=== PATIENT | male | born 1950 | race Caucasian/White ===

== ENCOUNTER 2019-10-11 19:49 | Emergency (ER) | payer OTHER, SELFPAY ==
[2019-10-11] VITALS (13 sets, daily range): BP systolic 126–141; BP diastolic 49–74; PULSE 80–82; RESP 15–18; TEMP 36.2; O2SAT 92–98; BMI 36.6
--- NOTE | 2019-10-11 20:06 | XR_ITS ---
WS: [id number] XR chest 1V portable [id number] REASON FOR EXAM: fall FINDINGS: Scoliotic curve convex to the right. Comparisons were made to September 22, 2017 there is fibrosis again seen in the lower lung [place]. No pneumonia, pleural effusion, pulmonary edema. The rib cage appears to be essentially normal. XR/XR chest 1V portable [id number] IMPRESSION: Scoliotic curve convex to the right Mild fibrosis lower lungs.
--- NOTE | 2019-10-11 20:13 | CTR_ITS ---
PROCEDURE INFORMATION: Exam: CT Head Without Contrast Exam date and time: 10/11/2019 9:08 PM Age: 69 years old Clinical indication: Injury or trauma; Fall TECHNIQUE: Imaging protocol: Computed tomography of the head without contrast. Radiation optimization: All CT scans at this facility use at least one of these dose optimization techniques: automated exposure control; mA and/or kV adjustment per patient size (includes targeted exams where dose is matched to clinical indication); or iterative reconstruction. COMPARISON: CT head wo con* [id number] 2017-09-22 13:50 RADIATION DOSE METRICS: Total DLP: 988.9 mGy-cm FINDINGS: Brain: Normal. No hemorrhage. Unremarkable white matter. No mass effect. Ventricles: Normal. No ventriculomegaly. Bones/joints: Unremarkable. No acute fracture. Sinuses: Visualized sinuses are unremarkable. No fluid levels. Mastoid air cells: Visualized mastoid air cells are well aerated. Soft tissues: Unremarkable. CT/CT head wo con* [id number] IMPRESSION: No acute intracranial abnormality. Radiation Dose CTDIVOL = (mGy): DLP = 988.9 (mGy-cm)
--- NOTE | 2019-10-11 20:13 | CTR_ITS ---
PROCEDURE INFORMATION: Exam: CT Chest With Contrast Exam date and time: 10/11/2019 9:08 PM Age: 69 years old Clinical indication: Pain and injury or trauma; Fall; Initial encounter; Blunt; Luq; Abdominal pain; Left-sided chest pain; Prior surgery; Surgery type: Bowel, bypass? ? TECHNIQUE: Imaging protocol: Computed tomography of the chest with intravenous contrast. Radiation optimization: All CT scans at this facility use at least one of these dose optimization techniques: automated exposure control; mA and/or kV adjustment per patient size (includes targeted exams where dose is matched to clinical indication); or iterative reconstruction. Contrast material: OMNI 300; Contrast volume: 95 ml; Contrast route: IV; COMPARISON: CT Abdomen/Pelvis Renal [id number] 2019-01-07 19:18 RADIATION DOSE METRICS: Total DLP: 2667.27 mGy-cm FINDINGS: Lungs: Noncalcified right lower lobe superior segment 9 mm pulmonary nodule. Mild patchy pulmonary mosaic attenuation is unchanged. Superior left lower lobe 8 mm pulmonary nodule. Pleural space: Unremarkable. No pneumothorax. No pleural effusion. Heart: Unremarkable. No cardiomegaly. No pericardial effusion. Aorta: Unremarkable. No aortic aneurysm. Lymph nodes: Unremarkable. No enlarged lymph nodes. Bones/joints: Mild thoracic spondylosis. Soft tissues: Unremarkable. IMPRESSION: 1. No acute abnormality. 2. Noncalcified right lower lobe superior segment 9 mm pulmonary nodule. Superior left lower lobe 8 mm pulmonary nodule. Recommend follow-up. COMMENTS: As per Fleischner Society guidelines for follow-up and management of pulmonary nodules: Recommend initial follow-up chest CT at 3, 9 and 24 months. Consider contrast enhanced chest CT, PET scan and/or biopsy as clinically warranted. PROCEDURE INFORMATION: Exam: CT Abdomen And Pelvis With Contrast Exam date and time: 10/11/2019 9:08 PM Age: 69 years old Clinical indication: Pain and injury or trauma; Fall; Initial encounter; Blunt; Luq; Abdominal pain; Left-sided chest pain; Prior surgery; Surgery type: Bowel, bypass? ? TECHNIQUE: Imaging protocol: Computed tomography of the abdomen and pelvis with intravenous contrast. Radiation optimization: All CT scans at this facility use at least one of these dose optimization techniques: automated exposure control; mA and/or kV adjustment per patient size (includes targeted exams where dose is matched to clinical indication); or iterative reconstruction. Contrast material: OMNI 300; Contrast volume: 95 ml; Contrast route: IV; COMPARISON: CT Abdomen/Pelvis Renal [id number] 2019-01-07 19:18 RADIATION DOSE METRICS: Total DLP: 2667.27 mGy-cm FINDINGS: Liver: Unchanged hypoattenuating 3.6 cm liver lesion causing mild bulging of the liver contour. Gallbladder and bile ducts: Cholelithiasis. Pancreas: Normal. No ductal dilation. Spleen: Normal. No splenomegaly. Adrenals: Normal. No mass. Kidneys and ureters: Small, less than 5 mm, renal hypodensity. Highly likely to be benign and does not require follow-up imaging or biopsy per ACR. Left inferior renal pole 4.8 cm simple cyst. Stomach and bowel: Proximal colectomy with ileocolic anastomosis. Couple colonic diverticula. Nonspecific 4 cm distension of the transverse segment of the duodenum. Appendix: No evidence of appendicitis. Intraperitoneal space: Unremarkable. No free air. No significant fluid collection. Vasculature: Unremarkable. No abdominal aortic aneurysm. Lymph nodes: Unremarkable. No enlarged lymph nodes. Bladder: Unremarkable as visualized. Reproductive: Mild prostate gland enlargement. Bones/joints: Unremarkable. No acute fracture. Soft tissues: Abdominal laparotomy scarring. CT/CT chest abd pel w con* IMPRESSION: 1. No acute abnormality. 2. Unchanged hypoattenuating 3.6 cm liver lesion causing mild bulging of the liver contour. 3. Cholelithiasis. 4. Nonspecific 4 cm distension of the transverse segment of the duodenum. COMMENTS: Consistent with the [employer]'s Incidental Findings Committee white paper (J Am Joellen Radiol 2018): Any incidental cystic renal lesion classified in this report as too small to characterize or simple appearing is likely a benign cyst. No follow-up imaging is recommended for these lesions per consensus recommendations based on imaging criteria. Radiation Dose CTDIVOL = (mGy): DLP = 2667.27~2667.27 (mGy-cm)
--- NOTE | 2019-10-11 20:28 | ED_ITS ---
HPI - General Adult General: Chief complaint: General Medical Stated complaint: left side pain Time Seen by Provider: 10/11/19 20:08 History of Present Illness: HPI narrative: Mr. Bean is a very nice 69-year-old male who comes in complaining of primarily left lower chest left upper quadrant pain after stepping into a hole and falling yesterday. He hit his head but had no loss of consciousness. He denies any neck pain, upper extremity pain, back pain or lower extremity injury/pain. Complains of pain to his left lower anterior ribs and his left upper quadrant of his abdomen. The patient states because the pain is persisted and has somewhat become worse he comes in to be evaluated. He denies any shortness of breath but his pain is made worse by deep breathing. When asked the patient does admit to being on Coumadin for history of atrial fibrillation. Associated symptoms: Reports chest pain; Deny confusion, diaphoresis, dyspnea, headache(s), malaise, nausea, rash, palpitations, syncope or vomiting Review of Systems General: Reports: other (negative unless marked) Const: Denies: fever, chills, body aches, fatigue, malaise or diaphoresis Eyes: Denies: change in vision or blurry vision ENMT: Denies: throat pain, painful swallowing, hoarseness, ear pain, ear discharge, Change in hearing or nasal discharge Card: Reports: chest pain; Denies: palpitations, irregular heart rhythm, syncope, pre-syncope, shortness of breath on exertion or shortness of breath when lying down Resp: Denies: shortness of breath, productive cough, non-productive cough, wheezing, coughing up blood or chest congestion GI: Reports: abdominal pain; Denies: nausea, vomiting, vomiting blood, coffee grounds in vomit, diarrhea, constipation, cramping, blood in stool or black tarry stool : Denies: flank pain, difficulty urinating, painful urination, urinary frequency, urinary urgency, decreased urine ouput, urinary incontinence or blood in urine Musc: Denies: neck pain, back pain, extremity pain, extremity swelling, joint pain, joint swelling, joint warmth or joint stiffness Skin/Breast: Denies: rash, skin tenderness or yellow skin Neuro: Denies: headache, numbness in extremities, weakness in extremities, changes in sensation, lack of coordination, difficulty walking, dizziness, vertigo or confusion Endo: Denies: excessive thirst, tired all the time, cold intolerance, excessive sweating, flushing or hot flashes Farhan/Lymph: Denies: easy bruising, easy bleeding, petechiae or enlarged lymph nodes All/Imm: Denies: hives, throat swelling, tongue swelling, facial swelling or acute wheezing PFSH ED PFSH: Medical History Atrial fibrillation Chronic pain Congestive heart failure COPD (chronic obstructive pulmonary disease) Coronary artery disease DM type 2 (diabetes mellitus, type 2) Hypertension Neuropathy Obstructive sleep apnea Surgical History H/O abdominal surgery Social History Smoking and tobacco status: current every day smoker Physical Exam Const: COMMON NORMALS: no apparent distress, oriented x3, no limitations, healthy appearing and well nourished EXAM LIMITATIONS: no altered mental status GENERAL APPEARANCE: cooperative, well kempt and well developed ORIENTATION/CONSCIOUSNESS: Yes awake HENMT: COMMON NORMALS: normocephalic, head/scalp atraumatic, hearing grossly normal bilaterally, external ears normal, EAC's normal, external nose normal and moist oral mucous membranes HEAD & SCALP: normal to inspection, normocephalic and atraumatic FACE & SINUS: normal facial exam and face symmetric NOSE: external nose normal and nares normal EXTERNAL EAR: Yes external ears normal EXTERNAL AUDITORY CANAL: EAC's normal MOUTH: oral and palatal mucosa normal and tongue normal Eye: COMMON NORMALS: PERRL, EOMs intact bilaterally, conjunctivae normal and no scleral icterus GENERAL EYE: normal appearance of both eyes and normal light reflex CONJUNCTIVA: Yes conjunctivae normal SCLERA: sclerae normal CORNEA: Yes corneas normal PUPIL: Yes PERRL DIRECT OPHTHALMOSCOPY: Yes normal light reflex Neck/C-Spine: COMMON NORMALS: full ROM, no lymphadenopathy, supple, no meningeal signs and no JVD GENERAL: Yes normal visual inspection and Yes trachea midline CERVICAL SPINE: Yes cervical ROM normal Chest: CHEST: Yes localized rib tenderness with anteroposterior compression, No sternal flail, Yes tenderness rib (Left lower anterior), No ecchymosis and Yes scars (Midline laparotomy scar) Resp: COMMON NORMALS: normal respiratory effort, no retractions, no use of accessory muscles and clear to auscultation bilaterally EFFORT & INSPECTION: Yes able to speak in complete sentences AUSCULTATION: clear to auscultation bilaterally Cardio: COMMON NORMALS: no JVD, regular rate, regular rhythm, S1 normal heart sound, S2 normal heart sound, no gallops, no clicks, no murmurs and no rub JUGULAR VENOUS DISTENTION: no JVD RATE: regular rate RHYTHM: regular rhythm HEART SOUNDS: S1 normal and S2 normal GI: COMMON NORMALS: soft to palpation, no hepatosplenomegaly and no masses PALPATION: Yes soft, Yes tender Details: LUQ and Yes no hepatosplenomegaly : COMMON NORMALS: Yes no CVA tenderness BLADDER/KIDNEY EXAM: Yes no CVA tenderness Back/Pelvis: COMMON NORMALS: no CVA tenderness, thoracic and lumbar spine normal to inspection, no thoracic nor lumbar tenderness and thoraco-lumbar ROM normal Extremity: COMMON NORMALS: normal to inspection, full ROM, normal capillary refill, no joint enlargement, no clubbing, cyanosis or edema and no calf tenderness Neuro: COMMON NORMALS: oriented x3, CN's II-XII intact bilaterally, moves all extremities, no focal motor deficits and no sensory deficits noted MENINGEAL SIGNS: Yes no meningeal signs Psych: COMMON NORMALS: mental status grossly normal, thought process normal, cooperative, affect normal, speech normal and activity/motor behavior normal APPEARANCE: Yes well kempt SPEECH: Yes normal speech THOUGHT PROCESS: normal thought process Skin: COMMON NORMALS: no rashes or lesions noted, skin turgor normal, no ja undice, no petechiae and no mottling GENERAL SKIN EXAM: no rashes or lesions noted and turgor normal Course Vital Signs: Vital signs: Vital Signs Temperature 97.1 F L 10/11/19 20:01 Pulse Rate 82 10/11/19 20:01 Respiratory Rate 15 10/11/19 20:01 Blood Pressure 141/74 10/11/19 20:01 Pulse Oximetry 98 10/11/19 20:01 MDM - General Adult MDM Narrative: Medical decision making narrative: Mr. Bean is a nice 69-year-old male who comes in complaining primarily of rib pain after he fell. Primary concern is the patient is on Coumadin and they are well known to have significant bleeding internally with trauma. CT scan shows no evidence of bleeding in the brain and his chest and abdomen CT showed no evidence of internal injuries. Clinically I do think he has a rib fracture so I will medicate him for this. He understands his medicine will make him groggy and sleepy and he will try to take it slow and accommodate for this at home. He has taken hydrocodone before and he believes he does well with it. He agrees to follow-up with his doctor concerning the pulmonary nodules in the nonspecific findings of his duodenum. Lab Data: Attestation: I reviewed the patient's lab results. Labs: Lab Results 10/11/19 10/11/19 10/11/19 Range/Units 20:23 20:23 20:23 WBC 12.3 H (4.0-10.0) 10^3/ uL RBC 5.01 (4.1-5.3) 10^6/u L Hgb 16.0 (11.7-16.6) g/dL Hct 47.5 (42.0-52.0) % MCV 94.8 H (80-94) fL MCH 31.9 (28.0-34.0) pg MCHC 33.7 (30.0-36.0) g/dL RDW 13.1 (12.1-15.1) % Plt Count 272 (130-400) 10^3/c mm MPV 11.2 H (7.4-10.4) fL Neut % (Auto) 53.9 % Lymph % (Auto) 35.3 % [place] % (Auto) 8.2 % Eos % (Auto) 1.8 % Baso % (Auto) 0.6 % Neut # (Auto) 6.6 (1.8-7.7) 10^3/u L Lymph # (Auto) 4.3 (0.8-4.8) 10^3/u L [place] # (Auto) 1.0 H (0.2-0.9) 10^3/u L Eos # (Auto) 0.2 (0.0-0.8) 10^3/u L Baso # (Auto) 0.1 (0.0-0.1) 10^3/u L Nucleated RBC % (a uto) 0 % Nucleated RBCs # 0.0 /100WBC PT 29.00 H (10.5-13.3) SECO NDS INR 2.62 H (0.8-1.2) Sodium 134 L (136-145) mmol/L Potassium 4.1 (3.5-5.1) mmol/L Chloride 99 (98-107) mmol/L Carbon Dioxide 24 (22-29) mmol/L Anion Gap 15.1 (5-19) BUN 13 (8-23) mg/dL Creatinine 0.8 (0.7-1.2) mg/dL GFR Calculation 96.4 (90-130) mL/min Glucose 200 H (65-115) mg/dL Calculated Osmolal ity 280 L (285-295) mOsm/k g Calcium 9.4 (8.5-10.5) mg/dL Total Bilirubin 0.4 (0.15-1.2) mg/dL AST 13 (0-40) U/L ALT 10 (0-41) U/L Alkaline Phosphata se 83 (40-130) IU/L Total Protein 7.3 (6.6-8.7) g/dL Albumin 3.9 (3.5-5.2) g/dL Globulin 3.4 (1.3-4.6) g/dL Imaging Data^: CXR: My impression: No obvious pneumothorax on the portable upright film. Questionable pulmonary contusion present. CT Head: Radiologist's impression: [address] [address] [address] Scan Report Signed Patient: Marlon Fairbanks Unit #: [id number] : 1950 Age/Sex: 69 / M ADM Date: 10/11/19 Loc: ER Room/Bed: Attending Dr: Ordering Provider/Ordering MD: Sofy Flores DO Date of Service: 10/11/19 Procedure(s): CT head wo con* [id number] Accession Number(s): [id number] Report Number: [id number] PROCEDURE INFORMATION: Exam: CT Head Without Contrast Exam date and time: 10/11/2019 9:08 PM Age: 69 years old Clinical indication: Injury or trauma; Fall TECHNIQUE: Imaging protocol: Computed tomography of the head without contrast. Radiation optimization: All CT scans at this facility use at least one of these dose optimization techniques: automated exposure control; mA and/or kV adjustment per patient size (includes targeted exams where dose is matched to clinical indication); or iterative reconstruction. COMPARISON: CT head wo con* [id number] 2017-09-22 13:50 RADIATION DOSE METRICS: Total DLP: 988.9 mGy-cm FINDINGS: Brain: Normal. No hemorrhage. Unremarkable white matter. No mass effect. Ventricles: Normal. No ventriculomegaly. Bones/joints: Unremarkable. No acute fracture. Sinuses: Visualized sinuses are unremarkable. No fluid levels. Mastoid air cells: Visualized mastoid air cells are well aerated. Soft tissues: Unremarkable. CT/CT head wo con* [id number] IMPRESSION: No acute intracranial abnormality. Radiation Dose CTDIVOL = (mGy): DLP = 988.9 (mGy-cm) Dictated By: Marlon Solis MD Signed By: Marlon Solis MD Signed Date/Time: 10/11/192141 DD/ 39 CT Chest/Abdomen/Pelvis: Radiologist's impression: [place] [address] CT Scan Report Signed Patient: Marlon Fairbanks Unit #: [id number] : 1950 354 Age/Sex: 69 / M ADM Date: 10/11/19 Loc: ER Room/Bed: Attending Dr: Ordering Provider/Ordering MD: Sofy Flores DO Date of Service: 10/11/19 Procedure(s): CT chest abd pel w con* Accession Number(s): [id number] Report Number: [id number] PROCEDURE INFORMATION: Exam: CT Chest With Contrast Exam date and time: 10/11/2019 9:08 PM Age: 69 years old Clinical indication: Pain and injury or trauma; Fall; Initial encounter; Blunt; Luq; Abdominal pain; Left-sided chest pain; Prior surgery; Surgery type: Bowel, bypass? ? TECHNIQUE: Imaging protocol: Computed tomography of the chest with intravenous contrast. Radiation optimization: All CT scans at this facility use at least one of these dose optimization techniques: automated exposure control; mA and/or kV adjustment per patient size (includes targeted exams where dose is matched to clinical indication); or iterative reconstruction. Contrast material: OMNI 300; Contrast volume: 95 ml; Contrast route: IV; COMPARISON: CT Abdomen/Pelvis Renal [id number] 2019-01-07 19:18 RADIATION DOSE METRICS: Total DLP: 2667.27 mGy-cm FINDINGS: Lungs: Noncalcified right lower lobe superior segment 9 mm pulmonary nodule. Mild patchy pulmonary mosaic attenuation is unchanged. Superior left lower lobe 8 mm pulmonary nodule. Pleural space: Unremarkable. No pneumothorax. No pleural effusion. Heart: Unremarkable. No cardiomegaly. No pericardial effusion. Aorta: Unremarkable. No aortic aneurysm. Lymph nodes: Unremarkable. No enlarged lymph nodes. Bones/joints: Mild thoracic spondylosis. Soft tissues: Unremarkable. IMPRESSION: 1. No acute abnormality. 2. Noncalcified right lower lobe superior segment 9 mm pulmonary nodule. Superior left lower lobe 8 mm pulmonary nodule. Recommend follow-up. COMMENTS: As per Fleischner Society guidelines for follow-up and management of pulmonary nodules: Recommend initial follow-up chest CT at 3, 9 and 24 months. Consider contrast enhanced chest CT, PET scan and/or biopsy as clinically warranted. PROCEDURE INFORMATION: Exam: CT Abdomen And Pelvis With Contrast Exam date and time: 10/11/2019 9:08 PM Age: 69 years old Clinical indication: Pain and injury or trauma; Fall; Initial encounter; Blunt; Luq; Abdominal pain; Left-sided chest pain; Prior surgery; Surgery type: Bowel, bypass? ? TECHNIQUE: Imaging protocol: Computed tomography of the abdomen and pelvis with intravenous contrast. Radiation optimization: All CT scans at this facility use at least one of these dose optimization techniques: automated exposure control; mA and/or kV adjustment per patient size (includes targeted exams where dose is matched to clinical indication); or iterative reconstruction. Contrast material: OMNI 300; Contrast volume: 95 ml; Contrast route: IV; COMPARISON: CT Abdomen/Pelvis Renal [id number] 2019-01-07 19:18 RADIATION DOSE METRICS: Total DLP: 2667.27 mGy-cm FINDINGS: Liver: Unchanged hypoattenuating 3.6 cm liver lesion causing mild bulging of the liver contour. Gallbladder and bile ducts: Cholelithiasis. Pancreas: Normal. No ductal dilation. Spleen: Normal. No splenomegaly. Adrenals: Normal. No mass. Kidneys and ureters: Small, less than 5 mm, renal hypodensity. Highly likely to be benign and does not require follow-up imaging or biopsy per ACR. Left inferior renal pole 4.8 cm simple cyst. Stomach and bowel: Proximal colectomy with ileocolic anastomosis. Couple colonic diverticula. Nonspecific 4 cm distension of the transverse segment of the duodenum. Appendix: No evidence of appendicitis. Intraperitoneal space: Unremarkable. No free air. No significant fluid collection. Vasculature: Unremarkable. No abdominal aortic aneurysm. Lymph nodes: Unremarkable. No enlarged lymph nodes. Bladder: Unremarkable as visualized. Reproductive: Mild prostate gland enlargement. Bones/joints: Unremarkable. No acute fracture. Soft tissues: Abdominal laparotomy scarring. CT/CT chest abd pel w con* IMPRESSION: 1. No acute abnormality. 2. Unchanged hypoattenuating 3.6 cm liver lesion causing mild bulging of the liver contour. 3. Cholelithiasis. 4. Nonspecific 4 cm distension of the transverse segment of the duodenum. COMMENTS: Consistent with the [employer]'s Incidental Findings Committee white paper (J Am Joellen Radiol 2018): Any incidental cystic renal lesion classified in this report as too small to characterize or simple appearing is likely a benign cyst. No follow-up imaging is recommended for these lesions per consensus recommendations based on imaging criteria. Radiation Dose CTDIVOL = (mGy): DLP = 2667.27 2667.27 (mGy-cm) Dictated By: Marlon Solis MD Signed By: Marlon Solis MD Signed Date/Time: 10/11/192205 DD/ 04 Discharge Plan Discharge Patient Disposition: Home, Self-Care Clinical Impression: Incidental pulmonary nodule, Duodenal anomaly Fractured rib Qualifiers: Encounter type: initial encounter Rib fracture type: single rib Fracture type: closed Laterality: left Qualified Code(s): S22.32XA - Fracture of one rib, left side, initial encounter for closed fracture Condition: Stable Prescriptions: [place] 5-325 mg tablet 2 tab PO Q6H PRN (Reason: pain) 5 Days Qty: 24 RF: 0 ondansetron HCl [Zofran] 4 mg tablet 4 mg PO Q6H PRN (Reason: nausea and vomiting) Qty: 20 RF: 0 Discharge Orders: Discharge Order (Routine); Ordered 10/11/19 Ordered By: Sofy Flores Referrals: Axel Wakefield MD [Primary Care Provider] - 1-3 days Discharge Diet: Advance as tolerated Discharge Activity: Limit activity as instructed Patient Instructions: Rib Fracture (ED), Pulmonary Nodules (ED) Activity Restrictions/Additional Instructions: Please return to the ER immediately for any of the signs or symptoms listed on your discharge instruction sheets, worsening/changing of your symptoms, you are not getting better as quickly as expected, or for ANY other cause or concerns. Take your pain medication as instructed but you may take less if you need less. Use the incentive spirometer as shown you by the respiratory therapist. This will help prevent a pneumonia. Be certain to take extra time and get up slowly as you are more prone to dizziness with the pain medications. Be certain to follow-up with your doctor for recheck of your rib fracture but also to discuss the pulmonary nodule found as well as the abnormality of your duodenum, these will need to be followed. Return to the ER for increased pain, shortness of breath, fever, you pass out or nearly pass out, or for any other cause for concern. Coding Level of Care Code ED Second Vp Hr Assessment for Chg Fwd Exam Comprehensive
[2019-10-11 20:43] LABS: Basophils # 0.1 10^3/uL (0.0-0.1); Basophils % 0.6 %; Eosinophils # 0.2 10^3/uL (0.0-0.8); Eosinophils % 1.8 %; Hematocrit 47.5 % (42.0-52.0); Lymphocytes # 4.3 10^3/uL (0.8-4.8); Lymphocytes % 35.3 %; Mean Corpuscular HGB Conc 33.7 g/dL (30.0-36.0); Mean Corpuscular Hemoglobin 31.9 pg (28.0-34.0); Mean Corpuscular Volume 94.8 fL (80-94); Mean Platelet Volume 11.2 fL (7.4-10.4); Monocytes % 8.2 %; Neutrophils # 6.6 10^3/uL (1.8-7.7); Neutrophils % 53.9 %; Nucleated Red Blood Cells % 0 %; Platelet Count 272 10^3/cmm (130-400); Red Blood Count 5.01 10^6/uL (4.1-5.3); Red Cell Distribution Width 13.1 % (12.1-15.1); White Blood Count 12.3 10^3/uL (4.0-10.0)
[2019-10-11] MEDS: sodium chloride 0.9% 1,000 ML 100 ML IV (20:46)
[2019-10-11] MEDS: morphine 4 mg/mL SDV 1 mL IVP ×2 (20:47→22:09)
[2019-10-11] MEDS: ondansetron 2 mg/ML SDV 2 mL 4 MG IVP (20:47)
[2019-10-11 20:55] LABS: INR 2.62 (0.8-1.2)
[2019-10-11 21:02] LABS: Alanine Aminotransferase 10 U/L (0-41); Albumin Level 3.9 g/dL (3.5-5.2); Alkaline Phosphatase 83 IU/L (40-130); Anion Gap 15.1 (5-19); Aspartate Amino Transferase 13 U/L (0-40); Blood Urea Nitrogen 13 mg/dL (8-23); Calcium 9.4 mg/dL (8.5-10.5); Carbon Dioxide 24 mmol/L (22-29); Chloride 99 mmol/L (98-107); Globulin 3.4 g/dL (1.3-4.6); Glomerular Filtration Rate 96.4 mL/min (90-130); Glucose 200 mg/dL (65-115); Osmolality Calculated 280 mOsm/kg (285-295); Potassium 4.1 mmol/L (3.5-5.1); Sodium 134 mmol/L (136-145); Total Bilirubin 0.4 mg/dL (0.15-1.2); Total Protein 7.3 g/dL (6.6-8.7)
[2019-10-11] MEDS: iohexol 300 mg/mL 100 mL Btl IV (21:36)
[2019-10-11] MEDS: HYDROcodone-acetaminophen 5-325 mg Tablet 2 TAB PO (22:52)
[2019-10-11] MEDS: HYDROmorphone 1 mg/mL INJ 1 mL 0.5 MG IVP (22:52)
== END 2019-10-11 23:00 | disposition home or self-care (01) ==
PROVIDERS: Emergency Provider Emergency Medicine; PCP Family Medicine
DX: S22.32XA Fracture of one rib, left side, initial encounter for closed fracture (principal); R91.1 Solitary pulmonary nodule; Q43.9 Congenital malformation of intestine, unspecified; I48.91 Unspecified atrial fibrillation; I11.0 Hypertensive heart disease with heart failure; I50.9 Heart failure, unspecified; J44.9 Chronic obstructive pulmonary disease, unspecified; I25.10 Atherosclerotic heart disease of native coronary artery without angina pectoris; E11.40 Type 2 diabetes mellitus with diabetic neuropathy, unspecified; F17.210 Nicotine dependence, cigarettes, uncomplicated; W19.XXXA Unspecified fall, initial encounter
CPT/HCPCS: 12345; 36415; 70450; 71045; 71260; 74177; 80053; 85025; 85610; 96361; 96374; 96375; 96376; 99283; 99284; J1170; J2270; J2405; J7030; Q9967

== ENCOUNTER 2020-05-11 23:33 | Emergency (ER) | payer OTHER, SELFPAY ==
[2020-05-11 23:57] VITALS: BP 149/70; PULSE 77; RESP 18; TEMP 37.3; O2SAT 95; BMI 34.2
--- NOTE | 2020-05-12 00:12 | W.ED.EXTPRO ---
HPI - Extremity Problem General: Chief complaint: Extremity Injury, Lower Stated complaint: fall, elbow pain Time Seen by Provider: 05/12/20 00:05 History of Present Illness: HPI Narrative: Patient is a 70-year-old male comes to the ED after having a fall. Past medical history of COPD, neuropathy, obstructive sleep apnea, A. fib, diabetes, CHF, hypertension and CAD. Fall occurred early this evening around 4 PM. Patient says he was walking in his yard and tripped. He fell forward and landed on his left elbow. Denies any loss of consciousness, head trauma, headache, vision changes or neurological symptoms. He has multiple superficial abrasions to left forearm. He currently has left elbow pain, right and left modi pain with hematoma on left modi. He has been able to ambulate after injury. Patient says he does not want any pain meds here in the ED. patient says he is unsure of last tetanus dose. Associated symptoms: Deny chest pain, fever(s) or rash Review of Systems Const: Denies: fever(s), chills or fatigue Eyes: Denies: change in vision or eye discomfort ENMT: Denies: throat pain, odynophagia, nasal discharge or nasal congestion Card: Denies: chest pain, palpitations, edema, swelling of feet/ankles, dyspnea on exertion or orthopnea Resp: Denies: dyspnea, productive cough or non-productive cough GI: Denies: abdominal pain, nausea, vomiting, diarrhea, constipation or hematochezia : Denies: flank pain, difficulty urinating, dysuria or hematuria Musc: Reports: joint pain (Left elbow) and other (Hematoma on left modi.); Denies: neck pain, back pain or extremity swelling Skin/Breast: Reports: new lesions (Superficial abrasions on forearm.); Denies: rash Neuro: Denies: headache(s), numbness in extremities or weakness in extremities PFS ED PFSH: Medical History Atrial fibrillation Chronic pain Congestive heart failure COPD (chronic obstructive pulmonary disease) Coronary artery disease DM type 2 (diabetes mellitus, type 2) Hypertension Neuropathy Obstructive sleep apnea Surgical History H/O abdominal surgery Social History Smoking and tobacco status: current every day smoker Physical Exam Const: COMMON NORMALS: no acute distress, patient oriented x3 and alert GENERAL APPEARANCE: cooperative and comfortable HENMT: COMMON NORMALS: normocephalic HEAD & SCALP: normocephalic MOUTH: Normal oral and palatal mucosa present THROAT: posterior oropharynx normal and uvula midline Neck/C-Spine: COMMON NORMALS: supple GENERAL: Yes normal visual inspection Resp: COMMON NORMALS: normal respiratory effort, No retractions, No use of accessory muscles and clear to auscultation bilaterally AUSCULTATION: clear to auscultation bilaterally Cardio: COMMON NORMALS: regular rate, regular rhythm, S1 normal heart sound present, S2 normal heart sound present, No gallops present (Cardio), No clicks present (Cardio), No murmurs present (Cardio) and Peripheral pulses 2+ throughout RATE: regular rate RHYTHM: regular rhythm HEART SOUNDS: S1 normal heart sound present and S2 normal heart sound present PERIPHERAL PULSES: Peripheral pulses 2+ throughout GI: COMMON NORMALS: Normal to inspection, nondistended, normoactive bowel sounds present, Soft to palpation, non-tender and no masses PALPATION: Yes Soft to palpation : COMMON NORMALS: Yes no CVA tenderness BLADDER/KIDNEY EXAM: Yes no CVA tenderness Back/Pelvis: COMMON NORMALS: no CVA tenderness Extremity: NARRATIVE EXTREMITY EXAM: Patient has approximately 10 cm hematoma on anterior aspect of left lower extremity just inferior to to knee. Tenderness to palpation approximately mid tib fib of right lower extremity. Neurovascular intact bilaterally with pedal pulse 2+ bilaterally. GENERAL: Yes normal exam except as noted Neuro: COMMON NORMALS: patient oriented x3 and moves all extremities SENSORIUM/ORIENTATION: Yes alert Skin: NARRATIVE SKIN EXAM: Patient has approximately 10 cm hematoma on anterior aspect of left lower extremity just inferior to to knee. TRAUMA: abrasion (Multiple superficial abrasions to left forearm.) Course Vital Signs: Vital signs: Vital Signs Temperature 99.1 F 05/11/20 23:57 Pulse Rate 94 05/12/20 02:36 Respiratory Rate 18 05/12/20 02:36 Blood Pressure 158/82 05/12/20 02:36 Pulse Oximetry 96 05/12/20 02:36 MDM - Extremity (Nontraumatic) MDM Narrative: Medical decision making narrative: Patient is a 70-year-old male comes to the ED after having a fall. He has right and left lower leg pain with a hematoma on left modi. He also has some left elbow pain with superficial abrasions on forearm. Denies any head trauma or loss of consciousness. X-ray of tib-fib of right and left lower extremity showed no acute fractures or findings. Left elbow x-ray showed no acute fractures or findings. Ultrasound venous duplex of both right and left lower extremity showed no DVTs or clots. Patient was given a updated tetanus shot while here in the ED. Patient was discharged and told to follow-up with PCP in 7 to 10 days for reevaluation. Rest, ice and elevate to help with pain and swelling. Return to ED precautions given. Patient understood and agree with plan. Imaging Data^: Xray Ortho: Attestation: I personally reviewed and interpreted this imaging study as follows: My impression: Right and left tib-fib x-ray showed no acute fractures or findings. Left elbow x-ray showed no acute fractures or findings. US Vascular: Attestation: I personally reviewed and interpreted this imaging study as follows: Radiologist's impression: Ultrasound venous duplex of lower extremities bilaterally?prelim report?no DVTs or blood clots seen. Discharge Plan Discharge Patient Disposition: Home Clinical Impression: Hematoma, Elbow pain, left Fall as cause of accidental injury at home as place of occurrence Qualifiers: Encounter type: initial encounter Qualified Code(s): W19.XXXA - Unspecified fall, initial encounter Condition: Stable Prescriptions: No Action Zofran 4 mg tablet 4 mg PO Q6H PRN (Reason: nausea and vomiting) Qty: 20 RF: 0 Discharge Orders: Discharge ED (Routine); Ordered 05/12/20 Ordered By: Axel Rosas Referrals: Axel Wakefield MD [Primary Care Provider] - Discharge Diet: Regular Discharge Activity: Increase activity as tolerated Patient Instructions: Contusion in Adults (ED) Activity Restrictions/Additional Instructions: Follow-up with medical provider as directed in 7 to 10 days for reevaluation. Continue taking all previously prescribed home medications. Rest, ice and elevate lower extremities. Apply cold pack on left elbow to help with pain as well. Take [id number]-[id number] Tylenol to help with pain. Return to the ER or your medical provider if condition worsens. Please read and understand discharge instructions. If any questions, please ask. Coding Level of Care Code ED Channel Lip Stiffener Insoles for Chg Fwd Exam Comprehensive
--- NOTE | 2020-05-12 00:46 | XR_ITS ---
WS: [id number] XR elbow LT min 3V* [id number] REASON FOR EXAM: fall injury FINDINGS: Narrowing of the elbow joint with subchondral sclerosis and marginal osteophytic spurring most promin ent in the humeral ulnar articulation. No fracture is identified. Bony protuberance and thickening of the cortex of the proximal radius . XR/XR elbow LT min 3V* [id number] IMPRESSION: No fracture identified. Benign bony process similar to that seen in right and left tibia. Same consider ations.
--- NOTE | 2020-05-12 00:46 | XR_ITS ---
WS: [id number] XR tibia fibula LT 2V [id number] REASON FOR EXAM: fall injury FINDINGS: No fracture or other focal bony abnormality. No soft tissue abnormality. XR/XR tibia fibula LT 2V [id number] IMPRESSION: Unremarkable tibia and fibula.
--- NOTE | 2020-05-12 00:46 | USCV_ITS ---
Marlon Fairbanks Age: 70 Gender: M : 1950 Exam Date: 05/12/2020 02:05 Ordering Phys: Axel Rosas Technologist: Filemon Fierro [place] [facility] [place]: BILAT EDEMA HISTORY: Lower extremity swelling. PROCEDURES: The venous duplex Doppler examination of both lower extremities was performed in the standard fashion. The following venous structures were evaluated: common femoral vein, profunda vein, proximal portion of the greater saphenous vein, superficial femoral vein, and the popliteal vein. In addition, the posterior tibial and peroneal trunk were evaluated. Bilaterally, the common femoral, superficial femoral, profunda femoral, popliteal, posterior tibial, greater saphenous veins, and the peroneal trunk were identified and interrogated in the standard fashion. These veins were found to be easily compressible with spontaneous blood flow. No evidence of insufficiency or thrombus noted. FINDINGS: Normal 2-D Doppler and augmentation and compressibility throughout the lower extremity venous structures. Additional imaging through the proximal calf veins also reveals no thrombus. Limited evaluation of the greater saphenous vein is patent with no thrombus.. CONCLUSIONS No evidence of DVT in the above-mentioned identifiable veins. Dr Paco Ferris MD [facility] (Electronically Signed) Final Date: 12 May 2020 10:16 S
--- NOTE | 2020-05-12 00:46 | XR_ITS ---
WS: [id number] XR tibia fibula RT 2V [id number] REASON FOR EXAM: fall injury FINDINGS: No fracture identified. Small bony protuberance in the proximal fibula. There is a long irregular bony protuberance from the proximal tibia posteriorly. Abnormality runs obl iquely from superior lateral to the inferior medial. XR/XR tibia fibula RT 2V [id number] IMPRESSION: No fracture. Incidental bony abnormalities of the right tibia and fibula which in retrospect are present and identical in the left tibia and fibula. Processes are consider ed benign. Considerations would be osteochondromas or fibrous dysplasia.
[2020-05-12] MEDS: tetanus-dipt-pertussis 0.5 mL SDV IM (01:10)
--- NOTE | 2020-05-12 01:52 | PC.NURSE ---
Abrasion to left lower leg and multiple abrasion to left arm cleaned with NS. Left open to air per pt request
[2020-05-12 02:36] VITALS: BP 158/82; PULSE 94; RESP 18; O2SAT 96
== END 2020-05-12 02:30 | disposition home or self-care (01) ==
PROVIDERS: Emergency Provider Physician Assistant; PCP Family Medicine
DX: S50.02XA Contusion of left elbow, initial encounter (principal); W19.XXXA Unspecified fall, initial encounter; I48.91 Unspecified atrial fibrillation; I11.0 Hypertensive heart disease with heart failure; I50.9 Heart failure, unspecified; J44.9 Chronic obstructive pulmonary disease, unspecified; I25.10 Atherosclerotic heart disease of native coronary artery without angina pectoris; E11.40 Type 2 diabetes mellitus with diabetic neuropathy, unspecified; F17.210 Nicotine dependence, cigarettes, uncomplicated; Z23 Encounter for immunization; S50.812A Abrasion of left forearm, initial encounter; M79.89 Other specified soft tissue disorders
CPT/HCPCS: 12345; 73080; 73590; 90471; 90715; 93970; 99281; 99283

== ENCOUNTER 2020-08-07 14:52 | Emergency (ER) | payer OTHER, SELFPAY ==
[2020-08-07 15:22] VITALS: BP 98/68; PULSE 51; RESP 15; TEMP 36.2; O2SAT 97; BMI 34.9
[2020-08-07 17:27] LABS: Basophils # 0.1 10^3/uL (0.0-0.1); Basophils % 0.9 %; Eosinophils # 0.2 10^3/uL (0.0-0.8); Eosinophils % 2.2 %; Hematocrit 41.6 % (42.0-52.0); Hemoglobin 14.1 g/dL (11.7-16.6); Lymphocytes # 3.9 10^3/uL (0.8-4.8); Lymphocytes % 41.4 %; Mean Corpuscular HGB Conc 33.9 g/dL (30.0-36.0); Mean Corpuscular Hemoglobin 31.8 pg (28.0-34.0); Mean Corpuscular Volume 93.9 fL (80-94); Mean Platelet Volume 11.1 fL (7.4-10.4); Monocytes # 0.9 10^3/uL (0.2-0.9); Neutrophils % 45.2 %; Nucleated Red Blood Cells % 0 %; Platelet Count 280 10^3/cmm (130-400); Red Blood Count 4.43 10^6/uL (4.1-5.3); Red Cell Distribution Width 12.7 % (12.1-15.1); White Blood Count 9.3 10^3/uL (4.0-10.0)
--- NOTE | 2020-08-07 18:09 | ED_ITS ---
HPI - Extremity Problem General: Chief complaint: Extremity Problem,Nontraumatic Stated complaint: R leg pain, redness Time Seen by Provider: 08/07/20 16:39 History of Present Illness: HPI Narrative: The patient has had right lower extremity pain and redness and weakness for the past 4 days. Couple days before that he had a blister on his toe that was popped at a outside facility. He is a diabetic and has congestive heart failure as well. No significant peripheral edema. He does have a mild cellulitis extending from the wound on his toe. He is already seeing wound care for an unrelated thing on his left modi. MD Complaint: extremity pain Location: right and toe Quality: sharp Exacerbating factors: nothing Associated symptoms: Reports no associated symptoms; Deny chest pain, fever(s) or rash Review of Systems General: Reports: 10 or more systems reviewed and unremarkable except in HPI and below Const: Denies: fever(s) Eyes: Denies: change in vision, blurry vision or eye redness ENMT: Denies: throat pain, swelling of lips/tongue, ear or mastoid pain or nasal congestion Card: Denies: chest pain, palpitations, irregular heart rhythm, edema, dyspnea on exertion or orthopnea Resp: Denies: dyspnea, productive cough or non-productive cough GI: Denies: abdominal pain, diarrhea or GI cramping : Denies: flank pain, urinary frequency or urinary urgency Musc: Denies: neck pain, back pain, extremity pain, joint pain, joint redness, limited range of motion or muscle weakness Skin/Breast: Denies: rash, pruritus, erythema, skin pain or skin tenderness Neuro: Denies: headache(s), numbness in extremities, weakness in extremities, sensory changes, difficulty walking, dizziness, confusion or Slurred speech present Psych: Denies: anxiety or depression Endo: Denies: polyuria All/Imm: Denies: urticaria, throat swelling or tongue swelling PFSH ED PFSH: Medical History (Updated 08/07/20 @ 18:17 by Shreyas Zambrano MD) Atrial fibrillation Chronic pain Congestive heart failure COPD (chronic obstructive pulmonary disease) Coronary artery disease DM type 2 (diabetes mellitus, type 2) Hypertension Neuropathy Obstructive sleep apnea Surgical History H/O abdominal surgery Social History (Updated 08/07/20 @ 15:28 by Joaquín Castillo RN) Smoking and tobacco status: heavy tobacco smoker cigarettes Packs smoked per day: 2 Alcohol intake: current Alcohol intake frequency: few times a week Alcohol type: wine Substance/Drug Use: never Physical Exam Const: COMMON NORMALS: no acute distress, average body habitus, patient orie nted x3, no limitations, healthy appearing, alert and well nourished GENERAL APPEARANCE: cooperative, comfortable, well kempt and well developed ORIENTATION/CONSCIOUSNESS: Yes awake, Yes oriented to person, Yes oriented to place and Yes oriented to time HENMT: COMMON NORMALS: normocephalic, external ears normal and Normal external nose present HEAD & SCALP: normal to inspection and normocephalic NOSE: Normal external nose present EXTERNAL EAR: Yes external ears normal MOUTH: Normal oral and palatal mucosa present THROAT: posterior oropharynx normal Eye: COMMON NORMALS: Equal, round and reactive pupils present and EOMs intact bilaterally GENERAL EYE: appearance normal, both eyes and all related structures PUPIL: Yes Equal, round and reactive pupils present Neck/C-Spine: COMMON NORMALS: full ROM, no lymphadenopathy, no meningeal signs and no JVD GENERAL: Yes normal visual inspection Lymph: LYMPHATIC: no lymphadenopathy noted Chest: COMMONS NORMALS: normal inspection of the chest and normal palpation of entire chest wall Resp: COMMON NORMALS: normal respiratory effort, No retractions, No use of accessory muscles, clear to auscultation bilaterally and percussion normal EFFORT & INSPECTION: Yes able to speak in complete sentences AUSCULTATION: clear to auscultation bilaterally PERCUSSION: percussion normal Cardio: COMMON NORMALS: no JVD, regular rate, regular rhythm, S1 normal heart sound present, S2 normal heart sound present and Peripheral pulses 2+ throughout RATE: regular rate RHYTHM: regular rhythm HEART SOUNDS: S1 normal heart sound present and S2 normal heart sound present PERIPHERAL PULSES: Peripheral pulses 2+ throughout GI: COMMON NORMALS: Normal to inspection, nondistended, normoactive bowel sounds present, Soft to palpation, non-tender and no masses INSPECTION: Yes normal to inspection PALPATION: Yes Soft to palpation : COMMON NORMALS: Yes no CVA tenderness BLADDER/KIDNEY EXAM: Yes no CVA tenderness Back/Pelvis: COMMON NORMALS: no CVA tenderness, thoracic and lumbar spine normal to inspection, no thoracic nor lumbar tenderness and thoraco-lumbar ROM normal Extremity: COMMON NORMALS: normal to inspection, full ROM, capillary refill normal, no joint enlargement and no pedal edema NARRATIVE EXTREMITY EXAM: Normal except wound at the tip of right great toe 1 cm in diameter with mild cellulitis streaking up the forefoot and towards the ankle and distal leg. Associated tenderness. On his left mid leg he has a chronic ulcer which she is seeing wound care for. That one is approximately 2 to 3 cm in diameter GENERAL: Yes normal exam except as noted Neuro: COMMON NORMALS: patient oriented x3, CN's II-XII intact bilaterally, moves all extremities, no focal motor deficits, no sensory deficits noted and gait normal SENSORIUM/ORIENTATION: Yes alert, Yes oriented to person, Yes oriented to place and Yes oriented to time MENINGEAL SIGNS: Yes no meningeal signs Psych: COMMON NORMALS: mental status grossly normal, Normal thought process present, cooperative, normal affect and speech normal APPEARANCE: Yes well kempt ATTITUDE: Yes calm SPEECH: Yes normal speech THOUGHT PROCESS: Normal thought process present Skin: COMMON NORMALS: no rashes or lesions noted GENERAL SKIN EXAM: no rashes or lesions noted Course Vital Signs: Vital signs: Vital Signs Temperature 97.1 F L 08/07/20 15:22 Pulse Rate 63 08/07/20 18:46 Respiratory Rate 18 08/07/20 18:46 Blood Pressure 100/66 08/07/20 18:46 Pulse Oximetry 97 08/07/20 18:46 MDM - Extremity (Nontraumatic) MDM Narrative: Medical decision making narrative: Normal white count. He is stable for outpatient antibiotics. Will discharge with Keflex. Follow-up with primary care physician in a few days to monitor improvement of symptoms. Return to ER with worsening symptoms. Lab Data: Labs: Lab Results 08/07/20 08/07/20 Range/Units 17:05 17:05 WBC 9.3 (4.0-10.0) 10^3/ uL RBC 4.43 (4.1-5.3) 10^6/u L Hgb 14.1 (11.7-16.6) g/dL Hct 41.6 L (42.0-52.0) % MCV 93.9 (80-94) fL MCH 31.8 (28.0-34.0) pg MCHC 33.9 (30.0-36.0) g/dL RDW 12.7 (12.1-15.1) % Plt Count 280 (130-400) 10^3/c mm MPV 11.1 H (7.4-10.4) fL Neut % (Auto) 45.2 % Lymph % (Auto) 41.4 % Brooke % (Auto) 10.0 % Eos % (Auto) 2.2 % Baso % (Auto) 0.9 % Neut # (Auto) 4.20 (1.8-7.7) 10^3/u L Lymph # (Auto) 3.9 (0.8-4.8) 10^3/u L Brooke # (Auto) 0.9 (0.2-0.9) 10^3/u L Eos # (Auto) 0.2 (0.0-0.8) 10^3/u L Baso # (Auto) 0.1 (0.0-0.1) 10^3/u L Nucleated RBC % (a uto) 0 % Nucleated RBCs # 0.0 /100WBC Sodium 132 L (136-145) mmol/L Potassium 4.5 (3.5-5.1) mmol/L Chloride 98 (98-107) mmol/L Carbon Dioxide 26 (22-29) mmol/L Anion Gap 12.5 (5-19) BUN 9 (8-23) mg/dL Creatinine 0.8 (0.7-1.2) mg/dL GFR Calculation 96.1 (90-130) mL/min Glucose 264 H (65-115) mg/dL Calculated Osmolal ity 282 L (285-295) mOsm/k g Calcium 8.3 L (8.5-10.5) mg/dL Total Bilirubin 0.3 (0.15-1.2) mg/dL AST 10 (0-40) U/L ALT 11 (0-41) U/L Alkaline Phosphata se 87 (40-130) IU/L Total Protein 6.8 (6.6-8.7) g/dL Albumin 3.7 (3.5-5.2) g/dL Globulin 3.1 (1.3-4.6) g/dL Discharge Plan Discharge Patient Disposition: Home Clinical Impression: Cellulitis Condition: Stable Prescriptions: New Keflex 500 mg capsule 500 mg PO BID 14 Days Qty: 28 RF: 0 No Action Zofran 4 mg tablet 4 mg PO Q6H PRN (Reason: nausea and vomiting) Qty: 20 RF: 0 Discharge Orders: Discharge ED (Routine); Ordered 08/07/20 Ordered By: Shreyas Zambrano Referrals: Axel Wakefield MD [Primary Care Provider] - Patient Instructions: Cellulitis (ED), Opioid Safety Activity Restrictions/Additional Instructions: You have a skin infection to your right foot called cellulitis. Please take the antibiotics I will discharge you with as directed. Follow-up with your wound care doctor to also see the wound on your toe. Return to the ER with worsening symptoms otherwise follow-up with your primary care physician in a few days to monitor improvement of your cellulitis. Coding Level of Care Code ED Financial Risk Manager for [place] Fwd Exam Comprehensive
[2020-08-07 18:13] LABS: Alanine Aminotransferase 11 U/L (0-41); Albumin Level 3.7 g/dL (3.5-5.2); Alkaline Phosphatase 87 IU/L (40-130); Anion Gap 12.5 (5-19); Aspartate Amino Transferase 10 U/L (0-40); Blood Urea Nitrogen 9 mg/dL (8-23); Calcium 8.3 mg/dL (8.5-10.5); Carbon Dioxide 26 mmol/L (22-29); Chloride 98 mmol/L (98-107); Globulin 3.1 g/dL (1.3-4.6); Glomerular Filtration Rate 96.1 mL/min (90-130); Glucose 264 mg/dL (65-115); Osmolality Calculated 282 mOsm/kg (285-295); Potassium 4.5 mmol/L (3.5-5.1); Sodium 132 mmol/L (136-145); Total Bilirubin 0.3 mg/dL (0.15-1.2); Total Protein 6.8 g/dL (6.6-8.7)
[2020-08-07] MEDS: cephALEXin 500 mg Capsule PO (18:28)
[2020-08-07 18:46] VITALS: BP 100/66; PULSE 63; RESP 18; O2SAT 97
== END 2020-08-07 18:47 | disposition home or self-care (01) ==
PROVIDERS: Emergency Provider Family Medicine; PCP Family Medicine
DX: L03.90 Cellulitis, unspecified (principal); I48.91 Unspecified atrial fibrillation; I11.0 Hypertensive heart disease with heart failure; I50.9 Heart failure, unspecified; J44.9 Chronic obstructive pulmonary disease, unspecified; I25.10 Atherosclerotic heart disease of native coronary artery without angina pectoris; E11.40 Type 2 diabetes mellitus with diabetic neuropathy, unspecified; F17.210 Nicotine dependence, cigarettes, uncomplicated
CPT/HCPCS: 80053; 85025; 99282